=== PATIENT | male | born 1975 | race Caucasian/White ===

== ENCOUNTER 2019-07-28 12:48 | Emergency (ER) | payer OTHER ==
[2019-07-28] MEDS ORDERED: LIDOCAINE 1% MPF 5 ML VIAL ONE (13:06)
--- NOTE | 2019-07-28 13:29 | RAD REPORT ---
EXAM DESCRIPTION: RAD - Hand Right 3 View - 07/28/2019 1:23 pm CLINICAL HISTORY: fish hook in finger COMPARISON: No comparisons FINDINGS: A fishhook is seen in the soft tissues of the fifth finger. No underlying fracture.
[2019-07-28] MEDS ORDERED: HYDROCODONE/APAP 5/325 MG TAB ONE (13:32)
--- NOTE | 2019-07-28 20:16 | EDPHYS ---
Physician Documentation [facility] Name: Robert Ng Age: 43 yrs Sex: Male : 1975 Arrival Date: 07/28/2019 Time: 12:52 Bed 10 Private MD: ED Physician Andrae Garcia HPI: 07/28 13:05 This 43 yrs old presents to ER via Ambulatory with complaints of Fish hook in finger. pm1 13:05 The patient or guardian reports a puncture wound, fish hook. The complaints affect the pm1 dorsal aspect of middle phalanx of left little finger. Context: The problem was sustained outdoors, resulted from fishing. Onset: The symptoms/episode began/occurred just prior to arrival. Modifying factors: The symptoms are alleviated by nothing, the symptoms are aggravated by nothing. Associated signs and symptoms: The patient has no apparent associated signs or symptoms, Pertinent negatives: cyanosis distally, decreased sensation distally, numbness distally, tingling distally. The patient has not experienced similar symptoms in the past. The patient has not recently seen a physician. tetanus less than 5 years old. Historical: - Allergies: 12:55 No Known Allergies; aj1 - Home Meds: 12:55 None [Active]; aj1 - PMHx: 12:55 None; aj1 - PSHx: 12:55 None; aj1 - Immunization history:: Last tetanus immunization: < 5 years ago. - Social history:: Smoking status: Patient/guardian denies using tobacco. - Ebola Screening: : Patient denies travel to an Ebola-affected area in the 21 days before illness onset. ROS: 13:05 Constitutional: Negative for fever, chills, and weight loss, Cardiovascular: Negative pm1 for chest pain, palpitations, and edema, Respiratory: Negative for shortness of breath, cough, wheezing, and pleuritic chest pain, Back: Negative for injury and pain. 13:05 MS/Extremity: Negative for injury and deformity. 13:05 Neuro: Negative for headache, weakness, numbness, tingling, and seizure. 13:05 Skin: Positive for puncture, of the dorsal aspect of middle phalanx of left little finger. Exam: 13:05 Constitutional: This is a well developed, well nourished patient who is awake, alert, pm1 and in no acute distress. Head/Face: Normocephalic, atraumatic. Neck: Trachea midline, no thyromegaly or masses palpated, and no cervical lymphadenopathy. Supple, full range of motion without nuchal rigidity, or vertebral point tenderness. No Meningismus. Chest/axilla: Normal chest wall appearance and motion. Nontender with no deformity. No lesions are appreciated. Cardiovascular: Regular rate and rhythm with a normal S1 and S2. No gallops, murmurs, or rubs. Normal PMI, no JVD. No pulse deficits. Respiratory: Lungs have equal breath sounds bilaterally, clear to auscultation and percussion. No rales, rhonchi or wheezes noted. No increased work of breathing, no retractions or nasal flaring. Back: No spinal tenderness. No costovertebral tenderness. Full range of motion. 13:05 Skin: Appearance: normal except for affected area, injury, puncture(s), of the dorsal aspect of middle phalanx of left little finger. Vital Signs: 12:55 BP 124 / 82; Pulse 87; Resp 18; Temp 97.0(TE); Pulse Ox 97% on R/A; Weight 131.54 kg [facility] (R); Height 6 ft. 1 in. (185.42 cm) (R); Pain 0/10; 12:55 Body Mass Index 38.26 (131.54 kg, 185.42 cm) [facility] Procedures: 13:35 Foreign Body Removal: a fishhook, from the dorsal aspect of middle phalanx of left pm1 little finger, by sheath jameel with 18 gauge needle and hook backed out. Dressinx4s were used to dress the wound, The patient tolerated the removal well, digital block with Marcaine and lidocaine 1% 3 mL. MDM: 13:01 Patient medically screened. pm1 13:32 Data reviewed: vital signs. Data interpreted: Pulse oximetry: on room air is 97 %. pm1 Interpretation: normal. Counseling: I had a detailed discussion with the patient and/or guardian regarding: the historical points, exam findings, and any diagnostic results supporting the discharge/admit diagnosis, radiology results, the need for outpatient follow up, a hand specialist, to return to the emergency department if symptoms worsen or persist or if there are any questions or concerns that arise at home. Administered Medications: 13:18 Drug: Lidocaine (1 %) 5 ml {Note: administered by Leola Gardner NP.} Volume: 5 ml; ss Route: Infiltration; 13:18 Drug: Marcaine (0.5 %) 5 ml {Note: administered by leola Gardner NP.} Volume: 10 ml; ss Route: Infiltration; 13:33 Drug: [place] 5 mg-325 mg 1 tabs Route: PO; ss 13:54 Follow up: Response: No adverse reaction; initial RASS score 0. Current RASS 0 ss Disposition: 14:52 Co-signature as Attending Physician, Andrae Garcia MD I agree with the assessment and kdr plan of care. Disposition: 07/28/19 13:33 Discharged to Home. Impression: Laceration with foreign body of left little finger without damage to nail. - Condition is Stable. - Discharge Instructions: Foreign Body. - Prescriptions for Tylenol- Codeine #3 300-30 mg Oral Tablet - take 2 tablets by ORAL route every 6 hours As needed; 12 tablet. Doxycycline Hyclate 100 mg Oral Tablet - take 1 tablet by ORAL route every 12 hours; 20 tablet. - Medication Reconciliation Form, Thank You Letter, Antibiotic Education, Prescription Opioid Use form. - Follow up: Emergency Department; When: As needed; Reason: Worsening of condition. Follow up: John Regalado MD; When: 2 - 3 days; Reason: Recheck today's complaints, Continuance of care, Re-evaluation by your physician. - Problem is new. - Symptoms have improved. Signatures: Maria Luisa Singletary RN RN aj1 Andrae Garcia MD MD [facility] Christen Guadarrama RN RN ss Marinas, Patrick, NP [employer] pm1 Corrections: (The following items were deleted from the chart) 13:56 13:33 07/28/2019 13:33 Discharged to Home. Impression: Laceration with foreign body of ss left little finger without damage to nail. Condition is Stable. Forms are Medication Reconciliation Form, Thank You Letter, Antibiotic Education, Prescription Opioid Use. Follow up: Emergency Department; When: As needed; Reason: Worsening of condition. Follow up: John Regalado; When: 2 - 3 days; Reason: Recheck today's complaints, Continuance of care, Re-evaluation by your physician. Problem is new. Symptoms have improved. pm1
--- NOTE | 2019-07-28 20:18 | ER ---
Nurse's Notes [facility] Name: Robert Ng Age: 43 yrs Sex: Male : 1975 Arrival Date: 07/28/2019 Time: 12:52 Bed 10 Private MD: Diagnosis: Laceration with foreign body of left little finger without damage to nail Presentation: 07/28 12:54 Presenting complaint: Patient states: Fish hook in left pinky finger. Reports this aj1 happened an hour and a half ago. Transition of care: patient was not received from another setting of care. Onset of symptoms was July 28, 2019. Risk Assessment: Do you want to hurt yourself or someone else? Patient reports no desire to harm self or others. Initial Sepsis Screen: Does the patient meet any 2 criteria? No. Patient's initial sepsis screen is negative. Does the patient have a suspected source of infection? No. Patient's initial sepsis screen is negative. Care prior to arrival: None. 12:54 Method Of Arrival: Ambulatory aj1 12:54 Acuity: MYRON 4 aj1 Triage Assessment: 12:55 General: Appears in no apparent distress. comfortable, Behavior is calm, cooperative, aj1 appropriate for age. Pain: Denies pain. Neuro: Level of Consciousness is awake, alert, obeys commands, Oriented to person, place, time, situation. Cardiovascular: Patient's skin is warm and dry. Respiratory: Airway is patent Respiratory effort is even, unlabored, Respiratory pattern is regular, symmetrical. GI: No signs and/or symptoms were reported involving the gastrointestinal system. : No signs and/or symptoms were reported regarding the genitourinary system. Derm: fish hook in left pinky finger. Musculoskeletal: No signs and/or symptoms reported regarding the musculoskeletal system. Circulation, motion, and sensation intact. Historical: - Allergies: 12:55 No Known Allergies; aj1 - Home Meds: 12:55 None [Active]; aj1 - PMHx: 12:55 None; aj1 - PSHx: 12:55 None; aj1 - Immunization history:: Last tetanus immunization: < 5 years ago. - Social history:: Smoking status: Patient/guardian denies using tobacco. - Ebola Screening: : Patient denies travel to an Ebola-affected area in the 21 days before illness onset. Screenin:56 Abuse screen: Denies threats or abuse. Denies injuries from another. Nutritional aj1 screening: No deficits noted. Tuberculosis screening: No symptoms or risk factors identified. Fall Risk None identified. Assessment: 12:56 Reassessment: see triage assessment. aj1 Vital Signs: 12:55 BP 124 / 82; Pulse 87; Resp 18; Temp 97.0(TE); Pulse Ox 97% on R/A; Weight 131.54 kg aj1 (R); Height 6 ft. 1 in. (185.42 cm) (R); Pain 0/10; 12:55 Body Mass Index 38.26 (131.54 kg, 185.42 cm) aj1 ED Course: 12:52 Patient arrived in ED. mr 12:55 Triage completed. aj1 12:55 Arm band placed on Patient placed in an exam room. aj1 12:56 Patient has correct armband on for positive identification. aj1 12:56 No provider procedures requiring assistance completed. aj1 13:00 Leola Gardner NP is PHCP. pm1 13:00 Andrae Garcia MD is Attending Physician. pm1 13:09 Christen Guadarrama RN is Primary Nurse. ss 13:32 John Regalado MD is Referral Physician. pm1 13:55 Patient did not have IV access during this emergency room visit. Removal of Foreign ss body removed hook from left dorsal aspect of middle phalanx of left little finger Patient tolerated well. Administered Medications: 13:18 Drug: Lidocaine (1 %) 5 ml {Note: administered by Leola Gardner NP.} Volume: 5 ml; ss Route: Infiltration; 13:18 Drug: Marcaine (0.5 %) 5 ml {Note: administered by leola Gardner NP.} Volume: 10 ml; ss Route: Infiltration; 13:33 Drug: [place] 5 mg-325 mg 1 tabs Route: PO; ss 13:54 Follow up: Response: No adverse reaction; initial RASS score 0. Current RASS 0 ss Intake: Outcome: 13:33 Discharge ordered by . pm1 13:55 Discharged to home ambulatory, with family. ss 13:55 Condition: good 13:55 Discharge instructions given to patient, Instructed on discharge instructions, follow up and referral plans. medication usage, wound care, Demonstrated understanding of instructions, follow-up care, medications, Prescriptions given X 2. 13:56 Patient left the ED. ss Signatures: Maria Luisa Singletary RN RN aj1 Katy Summers mr Christen Guadarrama RN RN ss Leola Gardner, [employer] pm1
== END 2019-07-28 13:56 | disposition home or self-care (01) ==
LOC: ER 12:48
DX: S61.227A Laceration with foreign body of left little finger without damage to nail, initial encounter (principal); W26.8XXA Contact with other sharp object(s), not elsewhere classified, initial encounter; W45.8XXA Other foreign body or object entering through skin, initial encounter; Y93.89 Activity, other specified; Y92.89 Other specified places as the place of occurrence of the external cause
CPT/HCPCS: 99283